=== PATIENT | female | born 1955 | race Caucasian/White ===

== ENCOUNTER 2017-04-20 10:51 | Emergency (ER) | payer SELFPAY ==
[2017-04-20] MEDS ORDERED: EPINEPHrine 1 mg/ml (1:1000) Inj IV STA (10:57)
[2017-04-20] MEDS ORDERED: Sodium Bicarbonate (8.4%) 50 Meq Syringe IVP ONE (11:02)
[2017-04-20] MEDS ORDERED: EPINEPHrine 1 mg/ml (1:1000) Inj IV ONE ×2 (11:02→11:06)
[2017-04-20] MEDS ORDERED: Sodium Bicarbonate (8.4%) 50 Meq Syringe ONE (11:05)
[2017-04-20] MEDS ORDERED: Atropine Sulfate 1 mg/ml Vial (1 ml) IVP ONE (11:10)
[2017-04-20 11:27] VITALS: BP 0/0; PULSE 0; RESP 0; TEMP 92.7; O2SAT 0
--- NOTE | 2017-04-20 12:21 | C.PDOC ---
History Of Present Illness 61 y/o female with extensive medical hx including PMHx of seizures and broken hip brought to ED by EMS in a cardiac arrest. As per he and his were up all night as per their usual routine. He fell asleep on the couch and in when he went to check on his , she was hunched over to one side. She was breathless for unknown amount of time. Patient has been bed bound for 2-3 years. He called 911. Patient was intubated by EMS, CPR, Epi, , positive ROSC. Patient arrived to the ED pusless and breathless, cyanotic, cold, pupils fixed and dilated. ACLS continued in ED. Chief Complaint (Nursing): Cardiac Arrest History Per: EMS, Family Reason For Code Blue: Full Arrest Circumstances: Brought To ED By EMS Arrest Witnessed By: No One CPR Initiated Prior To MD Arrival?: Yes Down-Time Before ACLS: Unknown - Initial Findings Mentation: Unresponsive Rhythm: PEA Past Medical History Reviewed: Historical Data, Nursing Documentation, Vital Signs Vital Signs: Last Vital Signs Temp 92.7 F L 04/20/17 11:09 Pulse 0 L 04/20/17 11:09 Resp 0 L 04/20/17 11:09 BP 0/0 L 04/20/17 11:09 Pulse Ox 0 L 04/21/17 16:37 - Medical History PMH: Seizures Surgical History: No Surg Hx Family History: States: No Known Family Hx - Social History Hx Alcohol Use: Yes Hx Substance Use: Yes Review Of Systems Review Of Systems: ROS cannot be obtained secondary to pt's inabilty to answer questions. (patient unresponsive) Physical Exam - Physical Exam Appears: Chronically Ill, Other (pulsless, breathless, cyanotic, in cardiac arrest) Skin: Mottled, Cyanotic Head: Atraumatic Eye(s): bilateral: Other (fixed and dilated) Oral Mucosa: Dry Lips: Pale Chest: Symmetrical, Other (good breath sounds with BVM ventilations ) Gastrointestinal/Abdominal: Distention Rectal: Other (incontinant of [place]) Back: Other (no evidance of trauma ) Extremity: Other (feet cold and blue, skin avvuslsion to left lateral [place]) Neurological/Psych: No Response To Commands Pain Response: No Response To Pain ED Course And Treatment O2 Sat by Pulse Oximetry: 0 Pulse Ox Interpretation: Abnormal Medical Decision Making Medical Decision Making: ACLS continued in the ED, Right EJ placed, CPR, Vini, Epi X 3, Atropine, Bicarb given. Unsuccessful resucitation. patient pronounced at 11:15 AM Disposition - Disposition Disposition: WITH WITHOUT AUTOPSY Disposition Time: 11:15 Condition: Forms: [facility] (French) - Clinical Impression Clinical Impression: Cardiac arrest Critical Care Time - Critical Care Note Total Time (in mins): 55 Documented critical care: time excludes all time spent performing seperately billable procedures. - Scribe Statement The provider has reviewed the documentation as recorded by the Scribe Thea Germain All medical record entries made by the Scribe were at my direction and personally dictated by me. I have reviewed the chart and agree that the record accurately reflects my personal performance of the history, physical exam, medical decision making, and the department course for this patient. I have also personally directed, reviewed, and agree with the discharge instructions and disposition.
== END 2017-04-20 15:44 ==
LOC: C.ER 10:51
DX: I46.9 Cardiac arrest, cause unspecified (principal)
CPT/HCPCS: 82948; 92950; 99285; J0171